=== PATIENT | female | born 1950 | race Caucasian/White ===

== ENCOUNTER 2016-04-14 08:25 | Day surgery (SDC) | payer MEDICARE ==
[~2016-04-14] VITALS: Ht 157.5 cm; Wt 54.0 kg
[~2016-04-14 08:25] MED LIST: 0.9% Sodium Chloride 1,000 ML IV SCH; ACET325T51 PO; FURO40TA4 PO; MAGN250T29 PO; PANT20TA2 PO; POTA20TA16 PO; SPIR25TA3 PO; Sodium Chloride LOK Flush 10 mL Syringe IV PRN; [UNRECOGNIZED DRUG - OTHER]; fentaNYL-PF 50 mCg/mL 2 mL Inj IVPUSH PRN; med plus 2.0 PO
[2016-04-14 08:46] VITALS: BP 147/82; PULSE 101; RESP 16; O2SAT 99
[2016-04-14] MEDS ORDERED: CHOL100043 PO (08:46)
[2016-04-14] MEDS ORDERED: SPIR100T3 PO (08:46)
[2016-04-14 10:30] VITALS: BP 137/70; PULSE 81; RESP 16; O2SAT 100
[2016-04-14 10:40] VITALS: BP 129/65; PULSE 81; RESP 16; O2SAT 99
[2016-04-14 10:50] VITALS: BP 146/81; PULSE 83; RESP 16; O2SAT 100
--- NOTE | 2016-04-14 22:55 | ENDO ---
[address] [address] ENDOSCOPY PROCEDURE PATIENT: GABRIELLE ROQUE : 1950 MR#: [id number] ADMIT: 04/14/2016 JOB ID: [id number] PROCEDURE: Esophagogastroduodenoscopy with biopsy and a colonoscopy with hot snare polypectomy. INDICATIONS: A 65-year-old female with cirrhosis, who reports for variceal screening. She additionally had a positive Cologuard. Colonoscopy is thus pursued. EQUIPMENT: GIF-H180J and a PCF-H180AL. SEDATION: 7 mg Versed, 125 mcg fentanyl. COMPLICATIONS: None identified. BOWEL PREPARATION: Fair, adequate exam. PROCEDURE INFORMATION: After the risks and benefits were explained, written and verbal informed consent was obtained, the patient was brought into the endoscopy suite and placed into the left lateral decubitus position. Sedation was achieved using the above-stated medications with the addition of oxygen via nasal cannula. The scope was introduced into the mouth through the bite block and advanced under direct visualization to the second portion of the duodenum. The scope was slowly withdrawn to carefully examine the mucosa for any defects or lesions. Retroflexed views were accomplished in the stomach. The stomach was decompressed. The scope removed from the patient who tolerated the procedure well. The patient was then turned around, a digital rectal examination accomplished. I could feel a polypoid structure with the tip of my finger. The scope was introduced into the rectum and advanced under direct visualization to the cecum, as identified by the appendiceal orifice and ileocecal valve. The scope was slowly withdrawn to carefully examine the mucosa for any defects or lesions. The scope and polyp were removed at the same time. The patient tolerated the procedure well. FINDINGS: 1. Duodenum. There was a small bland-based ulcer in the duodenal bulb. Otherwise, no pathology in the duodenum. 2. Stomach. Minimal nonspecific gastropathy seen throughout. No varices. No outlet obstruction. No ulcers. No mass lesions. Retroflexed views disclosed hiatal hernia. Random biopsy was taken for exclusion of Helicobacter or other pathology. 3. 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 The patient had impressive ulcerative esophagitis with significant ulceration in the 3 o'clock position, some subtle ulceration in the 9 o'clock position, quite a bit of exudate and some friability and contact bleeding identified. The GEJ was judged to be at approximately 33 cm. It was difficult to determine whether there was a segment of Winslow's or whether this was all just inflammatory sequelae. The pinchcock was at about 37 cm from the incisors. 4. Colon: There was an approximately 1 cm pedunculated polyp in the rectosigmoid region, removed with hot snare. No other pathology was appreciated throughout. ENDOSCOPIC DIAGNOSES: 1. Duodenal ulcer. 2. Mild gastropathy. 3. Hiatal hernia. 4. Severe esophagitis, Patrick grade D. 5. Colon polyp. RECOMMENDATIONS: 1. Await histopathology. 2. Patient is encouraged to initiate proton pump inhibitor therapy daily. 3. Repeat colonoscopy, three years. 4. Repeat EGD in the next four weeks to confirm ulcer healing and pursue further biopsies if Winslow's appears to be present.
--- NOTE | 2016-04-15 11:30 | PATH ---
SURGICAL PATHOLOGY Attending Physician:Noe Gonzalez CASE STATUS: Signed Out PATIENT NAME: GABRIELLE ROQUE PID: [id number] : 1950 DATE COLLECTED:04/14/2016 15:25 SPECIMEN: 1: Gastric, Biopsy 2: Colon, Biopsy CLINICAL HISTORY: 1.GASTRIC BIOPSY 2.RECTOSIGMOID POLYP X1 FINAL DIAGNOSIS: 1.GASTRIC BIOPSY: MUCOSAL HYPEREMIA WITHOUT ASSOCIATED SIGNIFICANT INFLAMMATION INVOLVING FUNDIC MUCOSA. Negative for evidence of Helicobacter. Negative for intestinal metaplasia. Negative for dysplasia and malignancy. 2.RECTOSIGMOID COLON POLYP: LARGE HYPERPLASTIC POLYP. ICD10 CODE K63.5 GROSS DESCRIPTION: The specimen is received in two formalin filled containers labeled with the patient's name. 1). The specimen is sublabeled "gastric" and consists of a 0.5 x 0.3 x 0.2 CM portion of tissue which is entirely submitted in cassette 1A. 2). The specimen is sublabeled "rectosigmoid polyp" and consists of a 1.1 x 1.0 x 1.0 CM portion of tissue. The specimen is trisected and entirely submitted in cassette 2A. 04/14/2016 DAC MICRO DESCRIPTION: See diagnosis. ICD-9 CODES: CPT CODES: 1: 89917 2: 89262 Electronically Signed Out Chung Lazar MD [facility] Pathology [facility] [address] [facility], [place] [address] Technical component performed at [facility], [facility] [address], [place], [address]
== END 2016-04-14 23:59 | disposition home or self-care (01) ==
LOC: END 08:25
PROVIDERS: ATTEND Internal Medicine Gastroenterology
DX: Z12.11 Encounter for screening for malignant neoplasm of colon (principal); K63.5 Polyp of colon; K26.9 Duodenal ulcer, unspecified as acute or chronic, without hemorrhage or perforation; K44.9 Diaphragmatic hernia without obstruction or gangrene; K20.9 Esophagitis, unspecified; K31.9 Disease of stomach and duodenum, unspecified; K74.60 Unspecified cirrhosis of liver
CPT/HCPCS: 43239; 45385; 99153; G0500; J2250; J3010; J7030

== ENCOUNTER 2016-05-21 08:30 | Day surgery (SDC) | payer MEDICARE ==
[~2016-05-21] VITALS: Ht 157.5 cm; Wt 55.3 kg
[~2016-05-21 08:30] MED LIST changes: +CHOL100043 PO; -PANT20TA2 PO; -POTA20TA16 PO; +SPIR100T3 PO; -SPIR25TA3 PO
[2016-05-21 08:51] VITALS: BP 147/69; PULSE 82; RESP 14; O2SAT 99
[2016-05-21] MEDS ORDERED: PANT40TA3 PO (08:55)
[2016-05-21 10:08] VITALS: BP 128/65; PULSE 77; RESP 16; O2SAT 98
[2016-05-21 10:18] VITALS: BP 117/60; PULSE 82; RESP 16; O2SAT 100
[2016-05-21 10:27] VITALS: BP 117/59; PULSE 76; RESP 16; O2SAT 99
--- NOTE | 2016-05-21 11:38 | ENDO ---
[address] [address] ENDOSCOPY PROCEDURE PATIENT: GABRIELLE ROQUE : 1950 MR#: [id number] ADMIT: 05/21/2016 JOB ID: [id number] DATE: 05/21/2016 PRIMARY PROVIDER: Renay Bosch MD PROCEDURE: Esophagogastroduodenoscopy. INDICATIONS: A 65-year-old female with cirrhosis and recent observation of severe esophagitis. She is on a PPI now and actually feels tremendous overall improvement. Repeat EGD is pursued for re-evaluation. EQUIPMENT: GIF-H180. SEDATION: Versed 7 mg, 125 mcg fentanyl. COMPLICATIONS: None identified. DESCRIPTION OF PROCEDURE: After the risks and benefits were explained, written and verbal informed consent was obtained. The patient was brought into the endoscopy suite and placed into the left lateral decubitus position. Sedation was achieved as above. The scope introduced into the mouth through the bite block and advanced to the second portion of the duodenum. The scope was slowly withdrawn to carefully examine the mucosa for any defects or lesions. Retroflexed views were accomplished in the stomach. The stomach was decompressed. The scope removed from the patient who tolerated the procedure reasonably well. FINDINGS: 1. Duodenum: No pathology identified from the bulb through the second portion. The previously seen deep ulcer had completely healed. 2. Stomach: Mild diffuse gastropathy consistent with portal hypertension identified. No gastric varices. No ulcers. No mass lesions. No outlet obstruction. 3. Esophagus: The squamocolumnar junction correlated with the top of the gastric folds. The GE junction was judged to be at about 34 cm from the incisors. There was substantial and a near complete healing of the previously seen LA grade D erosive esophagitis with only faint subtle irregularity at the level of the GE junction. I did not see any mass lesions. No persistent ulcers or erosions. The patient did have what appeared to be completely flattened out distal esophageal varices in the distal esophagus. No stigmata of recent bleeding or high risk foci. The remainder of the esophagus was unremarkable. ENDOSCOPIC DIAGNOSES: 1. Very small distal esophageal varices. 2. Small sliding hiatal hernia (not mentioned above). 3. Healed distal esophagus. 4. Portal hypertensive gastropathy. RECOMMENDATIONS: 1. Continue anti-reflux therapy. 2. Repeat EGD for surveillance in one year. I would recommend anesthesia at the next session. The patient struggles with esophageal intubation and requires higher than usual conscious sedation medication.
== END 2016-05-21 23:59 | disposition home or self-care (01) ==
LOC: END 08:30
PROVIDERS: ATTEND Internal Medicine Gastroenterology
DX: K20.9 Esophagitis, unspecified (principal); K44.9 Diaphragmatic hernia without obstruction or gangrene; K74.60 Unspecified cirrhosis of liver; I85.10 Secondary esophageal varices without bleeding; R18.8 Other ascites; K76.6 Portal hypertension; K31.89 Other diseases of stomach and duodenum
CPT/HCPCS: 43235; 99153; G0500; J7030